=== PATIENT | male | born 1960 | race Caucasian/White ===

== ENCOUNTER 2022-05-15 13:02 | Emergency (ER) | payer BC, SELFPAY ==
[2022-05-15 13:03] VITALS: BP 138/88; PULSE 51; RESP 18; TEMP 36.8; O2SAT 98
--- NOTE | 2022-05-15 13:27 | W.ED.GENAD ---
Discharge Plan Disposition Patient Disposition: Home Condition: Stable Discharge Details Clinical Impression: Closed right ankle fracture Primary Care Provider: Unknown,Unknown ED Provider: Kyle Mcdonald Home Meds and New Rx's Prescriptions: Continued acetaminophen [Acetaminophen Extra Strength] 500 mg Tablet 1,000 mg PO Q6H PRN No Action ibuprofen [Advil] 200 mg tablet 200 mg PO Q6H PRN Discharge Instructions Instructions: Ankle Fracture (ED) Additional Instructions: Please take ibuprofen over the counter. Take 600mg by mouth every 6 hours as needed for pain. Keep splint intact and use crutches. No weightbearing. Please follow-up with orthopedics. Call tomorrow. Please contact your primary care physician to arrange follow-up. Return to the ER immediately for any worsening or new concerning symptoms. Referrals: [facility] [Provider Group] Discharge Data Discharge Date/Time-TO BE ENTERED AT DEPARTURE: 05/15/22 14:30 Medical Decision Making 1333 -- 62-year-old male here with right ankle injury after slip on ice. Patient has significant swelling and crepitus in his ankle and I am concerned about bimalleolar versus trimalleolar fracture. Patient is neurovascular intact. Plan to obtain x-ray. Pain is currently controlled with Tylenol that he took prior to arrival. -- X-ray was interpreted by radiology: The appearance is consistent with trimalleolar fracture of the ankle, a question mild widening of the ankle mortise medially which could indicate a ligamentous injury . Spoke with on-call orthopedics who recommends posterior slab splint and will see patient in follow-up. Splint was applied by me. Patient neurovascular intact post blunt application. Patient provided crutches and advised to maintain nonweightbearing status. Plan to follow-up with orthopedics. Usual customary discharge instructions were reviewed with the patient. Sign Out No HPI General Mode of arrival: ambulatory. Date/Time Provider Initiated Documentation: 05/15/22 13:13. Limitations to Documentation: no limitations. Information obtained by: patient. HPI Narrative: 62-year-old male presents with chief complaint of right ankle injury. Patient notes he twisted his ankle with a fall on the ice just prior to arrival. He has pain in his ankle that is moderate and worse with any attempted movement. He notes ankle feels unstable. He denies associated numbness or tingling. No other injury. Related Data Home Medications Medication Instructions Recorded Confirmed acetaminophen 500 mg tablet 1,000 mg PO Q6H PRN 05/15/22 06/01/22 (Acetaminophen Extra Strength) ibuprofen 200 mg tablet (Advil) 200 mg PO Q6H PRN 06/01/22 06/01/22 Allergies Allergy/AdvReac Type Severity Reaction Status Date / Time No Known Allergies Allergy Verified 06/01/22 09:00 General Stated Complaint: Orthopedic SHARLA: 3 Review of Systems Musculoskeletal Musculoskeletal: Reports as per HPI Neurologic Neurologic: Reports as per HPI PFS All Active Problems (Updated 05/19/22 @ 09:09 by Clement Godfrey MD) Closed right trimalleolar fracture (Acute 05/15/22) Surgical History History of colonoscopy History of hip replacement Social History Smoking/Tobacco Use Status: Never Smoking risk assessment performed?: Yes Alcohol Intake: never Drug use: Occasionally Substance use type: marijuana Current gender identity: male Do you feel safe at home: Yes Do you feel safe in your relationship?: Yes Exam Const General: cooperative and healthy appearing Nutritional Appearance: average body habitus Orientation: alert and awake Cardio Rate: regular rate Rhythm: regular rhythm Skin Trauma: no lacerations Neuro Other: Distal right lower extremity sensation and motor are intact in toes Extrem Right lower extremity: lower leg Details: normal to inspection and ankle Details: tenderness Location: of the medial malleolus, edema, abnormal ROM and crepitus Course Vital Signs Vital signs: Vital Signs Temperature 36.8 C 05/15/22 13:03 Pulse 51 L 05/15/22 13:03 Respiratory Rate 18 05/15/22 13:03 Blood Pressure 138/88 05/15/22 13:03 Pulse Oximetry 98 05/15/22 13:03 Temperature 36.8 C 05/15/22 13:03 Temperature Source Temporal Artery Scan 05/15/22 13:03 Pulse 51 L 05/15/22 13:03 Respiratory Rate 18 05/15/22 13:03 Respiratory Effort Non-Labored 05/15/22 13:05 Blood Pressure 138/88 05/15/22 13:03 Blood Pressure Position Sitting 05/15/22 13:03 Pulse Oximetry 98 05/15/22 13:03 Pain Level 6 05/15/22 13:03
--- NOTE | 2022-05-15 13:41 | DI.RAD_ITS ---
Exam(s) XR ANKLE RT COMPLETE EXAM: XR ANKLE RT COMPLETE CLINICAL HISTORY: ankle injury, pain TECHNIQUE: COMPARISON: No exams were available for comparison FINDINGS: Three views were obtained. There is a question of slight widening of the ankle mortise medially germaine od there are fractures of the medial and lateral malleoli and probably the posterior malleolus as wel l. No talar or calcaneal fracture identified on these films... IMPRESSION: The appearance is consistent with trimalleolar fracture of the ankle, a question mild widening of th e ankle mortise medially which could indicate a ligamentous injury . RADIATION DOSE DELIVERED: Total DLP
== END 2022-05-15 14:30 | disposition home or self-care (01) ==
PROVIDERS: Emergency Provider Student in an Organized Health Care Education/Training Program
DX: S82.891A Other fracture of right lower leg, initial encounter for closed fracture (principal); W00.0XXA Fall on same level due to ice and snow, initial encounter
CPT/HCPCS: 99283; 73610

== ENCOUNTER 2022-05-17 08:25 | Outpatient (CLI) | payer BC, SELFPAY ==
--- NOTE | 2022-05-17 07:45 | DI.RAD_ITS ---
Exam(s) XR ANKLE RT COMPLETE EXAM: XR ANKLE RT COMPLETE CLINICAL HISTORY: right ankle fracture. TECHNIQUE: 2D digital imaging was performed of the right ankle. Three images were obtained. AP, la teral and oblique views were obtained. COMPARISON: CR XR ANKLE RT COMPLETE from 05/15/2022 FINDINGS: BONES: There is again seen a laterally displaced oblique fracture of the distal right fibula. There is also seen a fracture of the medial malleolus. In the interim there does appear to be mild increas e in the lateral displacement of the distal malleolar fracture fragment. The fracture the posterior malleolus is not as well visualized on the current examination. No bony destructive lesion is seen. JOINTS: There does appear to be slight increase in widening of the medial ankle joint compartment com pared to the prior examination. SOFT TISSUE: There is soft tissue swelling of the ankle. The ankle is in a splint. IMPRESSION: Fractures involving the distal tibia and fibula. Mild increase in the displacement of the medial mal leolar fracture and mild increase in the widening of the medial ankle joint space. DATA REPOSITORY: RADIATION DOSE DELIVERED:
== END 2022-05-17 08:26 | disposition home or self-care (01) ==
LOC: DIORS 08:25
PROVIDERS: Visit Provider Physician Assistant
DX: S82.891D Other fracture of right lower leg, subsequent encounter for closed fracture with routine healing (principal); X58.XXXD Exposure to other specified factors, subsequent encounter
CPT/HCPCS: 73610

== ENCOUNTER 2022-05-19 12:00 | Day surgery (SDC) | payer BC, SELFPAY ==
[2022-05-19 12:14] VITALS: BP 129/63; PULSE 62; RESP 16; TEMP 36.6; O2SAT 98
[2022-05-19] MEDS: Lactated Ringers 1,000 ML 30 ML IV (12:46)
--- NOTE | 2022-05-19 14:17 | W.ANESPRE ---
General Info Date of Service Date Performed: 05/19/22 Height: 5 ft 9 in Weight: 72 kg Body Mass Index (BMI): 23.4 Surgical Procedure: Operation Date: 05/19/22 15:10 Proposed Procedure Side Surgeon p Ankle ORIF, Possible Syndemosis Fixation Right Clement Godfrey MD Meds Allergies and Home Medications Allergies Allergy/AdvReac Type Severity Reaction Status Date / Time No Known Allergies Allergy Verified 05/19/22 12:11 Home Medication Medication Instructions Recorded acetaminophen 500 mg tablet 1,000 mg PO Q6H PRN 05/15/22 (Acetaminophen Extra Strength) aspirin 81 mg tablet,delayed 81 mg PO DAILY prevent blood clot 05/19/22 release 7 days #7 tabs naproxen 250 mg tablet 250 - 500 mg PO BID PRN #40 tabs 05/19/22 oxycodone 5 mg tablet 5 - 10 mg PO Q4H PRN moderate to 05/19/22 severe pain #18 tabs Current Visit Medications: Current Medications Generic Name Dose Route Start Last Admin Trade Name Freq PRN Reason Stop Dose Admin Ringer's Solution 1,000 mls @ 30 mls/hr 05/19/22 06:00 05/19/22 12:46 IV 06/17/22 23:59 30 mls/hr INFUSION MARLON Administration Cefazolin Sodium/Dextrose 2 gm in 50 mls @ 100 mls/hr 05/19/22 06:00 Ancef Duplex IVPB 05/19/22 16:00 PREOP MARLON IV Miscellaneous Supplies 1 each 05/19/22 06:00 Iv Access IV 06/17/22 23:59 DIRECTED MARLON Oxycodone HCl 0 mg 05/19/22 09:04 Oxycodone 5 Mg Tab PO Q3H PRN PRN Pain Sodium Chloride 0 ml 05/19/22 06:00 Normal Saline Flush 10 Ml Syr IV 06/17/22 23:59 PRN PRN Sodium Chloride 0 ml 05/19/22 06:00 Normal Saline 10 Ml Vial IJ 06/17/22 23:59 DIRECTED PRN Sterile Water 0 ml 05/19/22 06:00 Water,Injection,Sterile 10 Ml Vial IJ 06/17/22 23:59 DIRECTED PRN PFSH Active Problems Active Problems: Problem Status Onset Code Closed right trimalleolar fracture 05/15/22 [id number] Surgical History Surgical History History of colonoscopy History of hip replacement Tobacco Smoking/Tobacco Use Status: Never Alcohol Alcohol Intake: never Substance Use Substance use: Occasionally Substance use type: marijuana Vital Signs and Lab Results Vital Signs Most Recent Vital Signs in EMR: Most Recent Vital Signs Temp Pulse Resp BP Pulse Ox 36.6 C 62 16 129/63 98 05/19/22 12:14 05/19/22 12:14 05/19/22 12:14 05/19/22 12:14 05/19/22 12:14 Lab Results Blood Type / Crossmatch: No Data to Display Complete Blood Count: No Data to Display Complete Metabolic Panel: No Data to Display Liver Function Panel: No Data to Display Coagulation Panel: No Data to Display Cardiac Panel: No Data to Display Arterial Blood Gas: No Data to Display Venous Blood Gas: No Data to Display Pancreas Panel: No Data to Display Thyroid Panel: No Data to Display Infectious Disease: No Data to Display Blood Cultures: No Data to Display Toxicology Panel: No Data to Display Anesthesia Assessment and Plan Anesthesia History Personal History: No History of Anesthesia Complications Family History: No Family History of Anesthesia Complications Exercise Tolerance Exercise Tolerance: Metabolic Equivalents>4 Cardiac & Pulmonary Exam Cardiac Exam: Normal S1/S2 Heart Sounds Pulmonary Exam: Clear Bilateral Breath Sounds Implantable Cardiac Device Does patient have a Pacemaker or an ICD?: No Airway Exam Known Difficult Airway: No Mallampati Class: 2 Mouth Opening: Normal (> 3cm) Thyromental Distance: Greater than 3 cm Neck Range of Motion: Full ROM Neck Circumference: Normal Teeth Condition: Normal Dentition ASA Classification ASA Score: ASA 2 Emergency Case?: No NPO Status NPO Status: NPO Clears >2 hours, Solids >8 hours Anesthesia Plan Resuscitation Status: Full Code Anesthesia Technique: General Anesthesia Airway Planned: Endotracheal Tube Pain Management: Surgeon and patient request nerve block Monitors Used: Standard Monitors Preoperative Comments:: 62 to male for ankle ORIF. Sig PMHx: never tobacco, occ cannabis, denies any major. Discussed risk, benifits, and alternitives of GA with regional anesthesia (adductor canal, pop/sci). He would like to not do a nerve block right off and would like it as a rescue.
[2022-05-19 14:18] VITALS: BMI 23.4
--- NOTE | 2022-05-19 14:45 | DI.RAD_ITS ---
Exam(s) XR ANKLE RT COMPLETE EXAM: XR ANKLE RT COMPLETE CLINICAL HISTORY: RIGHT ANKLE FRACTURE TECHNIQUE: 2D and realtime digital imaging was performed. CONTRAST MATERIAL: Refer to procedure report. COMPARISON: CR XR ANKLE RT COMPLETE from 05/17/2022 FINDINGS: Fluoroscopy was provided for Dr. Godfrey during the performance of a reduction and internal fixation o f the right ankle fracture. Please refer to the procedure report for complete details. Ka,r=1.23 mGy IMPRESSION: RADIATION DOSE DELIVERED:
[2022-05-19] MEDS: ceFAZolin 2 GM/50 ML BAG IVPB (15:13)
[2022-05-19 16:50] VITALS: BP 111/66; PULSE 62; RESP 17; TEMP 36.5; O2SAT 93
[2022-05-19 16:55] VITALS: BP 109/62; PULSE 59; RESP 12; TEMP 36.5; O2SAT 94
[2022-05-19 17:00] VITALS: BP 112/66; PULSE 58; RESP 18; TEMP 36.5; O2SAT 95
--- NOTE | 2022-05-19 17:02 | W.PM.DSUDISC ---
Date of service: 05/19/22 Time of Service: 17:00 Discharge Plan Disposition Patient Disposition: Home Discharge Details Attending Provider: Clement Godfrey Primary Care Provider: Kaya,Local Home Meds and New Rx's Prescriptions: New naproxen 250 mg tablet 250 - 500 mg PO BID PRNQty: 40 0RF Rx Instructions: take with a meal oxycodone 5 mg tablet 5 - 10 mg PO Q4H MDD 30 mg PRN (Reason: moderate to severe pain) Qty: 18 0RF aspirin 81 mg tablet,delayed release (DR/EC) 81 mg PO DAILY 14 Days Qty: 14 0RF Continued acetaminophen [Acetaminophen Extra Strength] 500 mg Tablet 1,000 mg PO Q6H PRN Discontinued ibuprofen 200 mg tablet 200 mg PO Q6H PRN Discharge Instructions Additional Instructions: Surgery: Right trimalleolar ankle ORIF (medial and lateral malleoli) Activity: Non-weightbearing with crutches. Strict elevation to minimize swelling and discomfort. Wiggle toes to improve circulation and prevent blood clot. A physical therapy prescription will be provided separately in the office at follow-up if needed. Prescriptions: Aspirin 81 mg take 1 daily to prevent a blood clot for 2 weeks Naproxen 250 mg take 1-2 every 12 hours with a meal as needed for moderate pain Oxycodone 5 mg take 1-2 every 4-6 hours as needed for severe pain You may use [id number] Tylenol (acetaminophen) as needed for mild pain. These pain medications may be taken all at once or in different combinations as needed. Also, recommend Colace (docusate) as a stool softener as surgery and pain medicine cause constipation. You may try [id number] diphenhydramine (Benadryl) 25-50 mg nightly as a sleep aid Dressings: Leave splint and dressing in place until follow-up. Keep clean and dry at all times. Follow-up: 10-[address] Godfrey You may take off the leg compression stockings this evening at home. You may also leave them on a few days longer if you have a history of leg swelling or edema. Let us know right away if you develop any redness, drainage, fevers, chest pain, or trouble breathing. Do not drink alcohol or drive for at least 24 hours after anesthesia. Please call the office during business hours with any questions or concerns. Discharge Orders Discharge Orders: Discharge Order (Routine); Ordered 05/19/22 Ordered By: Clement Godfrey DS: Diagnosis Discharge Diagnosis (1) Closed right trimalleolar fracture: Status: Acute
--- NOTE | 2022-05-19 17:11 | ROE_ITS ---
Date of service: 05/19/22 Time of Service: 15:00 Operative Note Operative Note DATE OF PROCEDURE: 05/19/22 PRE-OP DIAGNOSIS: Right displaced trimalleolar ankle fracture POST-OP DIAGNOSIS: same PROCEDURE: Right ankle: 1. Trimalleolar ankle fracture ORIF, medial and lateral malleoli, CPT #85384 SURGEON: Clement Godfrey TIMBER MANAGEMENT SPECIALIST: Swati Brown ANESTHESIA TYPE: Local By Surgeon and General LMA/ETT Refer to Anesthesia Record ESTIMATED BLOOD LOSS: 15 TOURNIQUET TIME: 0 COMPLICATIONS: None Patient was transported to: PACU Patient's condition: stable Implants: Synthes / tublar plate, 7 hole with 3.5 mm cortex screws (low profile) and 4.0 cancellous screws. Partially threaded cancellous screws medially. Indications: Please see complete medical record for details. Procedure Description: In the operating room, general anesthesia was induced. The patient was positioned supine on the operating room table. All bony prominences were well- padded. Preoperative antibiotics were administered. The right ankle was prepped and draped in the usual sterile fashion. The correct patient, procedure, and side of the procedure were all verified prior to incision. The planned medial and lateral surgical sites were pretty injected with 0.25% bupivacaine containing epinephrine. A curvilinear approach to the medial malleolus was used with interposed soft tissue removed and a pointed clamp used to achieve and provisionally hold the reduction. The 2.5 mm drill was then directed fluoroscopically up the medial malleolus into the central distal tibia. A 4.0 mm partially-threaded cancellous screw was inserted with reasonable fixation strength. The clamp was removed. There was minimal motion but slight gapping anteriorly at the shoulder this process was repeated for more anterior colliculi second partially-threaded screw. The screw engaged fairly soft bone and only minimally compressed the fracture site. Both screws were final tightened. Medial malleolus was stable and acceptably reduced. The direct lateral approach was taken to the distal fibula centered about the fracture site. Periosteum was elevated as needed proximally and distally. The fracture ends were exposed, cleaned of fibrinous material, and reduced with a couple bone clamps readily restoring length and rotation with excellent fracture keys. The anterior syndesmosis was visibly intact at the proximal half of it to the proximal aspect of the fracture. The distal portion had moderate injury to the displaced distal portion of the fibula. A 7 hole 1/3 tubular plate was selected to allow 3 holes above and below the fracture site. It was contoured to fit the patient then applied and secured with a 3.5 mm bicortical cortex screw just proximal to the fracture. Length and position were confirmed. An additional proximal bicortical screw was placed proximally followed by an initial 1 just distal to the fracture site, but above the talus taking care not to enter the tib-fib joint. The most distal 2 screw holes where drilled under fluoroscopic guidance and then optimally lengths 4.0 mm cancellous screws placed for best fixation to avoid entering the lateral shoulder lastly the final proximal bicortical screw was drilled and placed. The ankle mortise was inspected fluoroscopically. There was excellent and stable tib-fib overlap and medial clear space on external rotation stress testing. The tiny posterior malleolus fragment was reasonably reduced as well. Decision made to omit any syndesmotic fixation. The wounds were copiously irrigated with normal saline. Subcutaneous tissue was closed in 2-0 Monocryl buried interrupted. The skin was closed with 3-0 nylon horizontal mattress. Xeroform applied over incisions followed by sterile gauze, ABD pads, and sterile soft roll. A well-padded plaster short leg AO splint a pplied. The patient awoke from anesthesia without complication and was transferred to the recovery room in a stable condition.
[2022-05-19 17:12] VITALS: BP 114/68; PULSE 56; RESP 18; TEMP 36.6; O2SAT 96
--- NOTE | 2022-05-19 17:13 | W.ANESPOSTOP ---
Postoperative Evaluation Date, Time and Location Date Performed: 05/19/22 Time Performed: 17:13 Patient Location: PACU Vital Signs Most Recent Imported Vital Signs: Most Recent Vital Signs Temp Pulse Resp BP Pulse Ox 36.5 C 58 L 18 112/66 95 05/19/22 17:00 05/19/22 17:00 05/19/22 17:00 05/19/22 17:00 05/19/22 17:00 Pain Score Most Recent Pain Score: Most Recent Pain Score Pain Level 5 05/19/22 17:00 Assessment Mental Status: Awake (Alert & Oriented to Patient Baseline) Airway and Respiratory Function: Patent airway with normal (patient baseline) respiratory exam Cardiovascular Function: Hemodynamically Stable Hydration Status: Adequately Hydrated Nausea & Vomiting: No Nausea or Vomiting Pain: Pain is tolerable per patient Peripheral Nerve Block: Patient did not receive a nerve block Postoperative Comments:: Pt. awake and doing well. States tolerable discomfort. Declines rescue nerve block.
[2022-05-19] MEDS: oxyCODONE 5 MG TAB PO (17:23)
[2022-05-19 17:44] VITALS: BP 120/72; PULSE 46; RESP 18; TEMP 36.2; O2SAT 99
== END 2022-05-19 18:14 | disposition home or self-care (01) ==
PROVIDERS: Visit Provider Student in an Organized Health Care Education/Training Program
PROC: (CPT 27822; principal; 2022-05-19 15:00)
DX: S82.851A Displaced trimalleolar fracture of right lower leg, initial encounter for closed fracture (principal); W00.0XXA Fall on same level due to ice and snow, initial encounter
CPT/HCPCS: 27822; 73610; J0131; J0690; J1100; J1885; J2405; J2704

== ENCOUNTER 2022-06-01 09:16 | Outpatient (CLI) | payer BC, SELFPAY ==
--- NOTE | 2022-06-01 09:22 | DI.RAD_ITS ---
Exam(s) XR ANKLE RT COMPLETE EXAM: XR ANKLE RT COMPLETE CLINICAL HISTORY: right ankle f/u. TECHNIQUE: 2D digital imaging was performed. COMPARISON: CR XR ANKLE RT COMPLETE from 05/17/2022 XA XR ANKLE RT COMPLETE from 05/19/2022 FINDINGS: 3 views There has been interval ORIF. Again noted is lateral fixation plate in satisfactory position across the fibular fracture site. Fra cture line this level still evident but nondisplaced. There are also 2 parallel screws across the me dial malleolus fracture site noted. Posteriorly there is a small calcific density immediately posterior to the posterior malleolus which is possibly an avulsion injury at this level. Otherwise the talar dome appears unremarkable. Ankle and subtalar joints appear satisfactory-unremar kable. No radiographic evidence of osteomyelitis. No hardware loosening. IMPRESSION: As above. DATA REPOSITORY: RADIATION DOSE DELIVERED:
== END 2022-06-01 09:17 | disposition home or self-care (01) ==
LOC: DIORS 09:17
PROVIDERS: Visit Provider Student in an Organized Health Care Education/Training Program
DX: S82.851D Displaced trimalleolar fracture of right lower leg, subsequent encounter for closed fracture with routine healing (principal); X58.XXXD Exposure to other specified factors, subsequent encounter
CPT/HCPCS: 73610

== ENCOUNTER 2022-06-28 10:18 | Outpatient (CLI) | payer BC, SELFPAY ==
--- NOTE | 2022-06-28 08:15 | DI.RAD_ITS ---
Exam(s) XR ANKLE RT COMPLETE EXAM: XR ANKLE RT COMPLETE CLINICAL HISTORY: right ankle f/u. TECHNIQUE: 2D digital imaging was performed. COMPARISON: Prior x-rays 06/01/2022 FINDINGS: 3 views Hardware including a lateral fixation plate distal fibula and screw across medial malleolus fracture site remains stable with no loosening nor radiographic evidence of osteomyelitis. There is stable al ignment at the fracture sites. Fracture lines are still visible. There is no widening of the ankle mortise and the talar dome appears unremarkable. No incidental osseous tarsal coalition. IMPRESSION: Stable appearance. DATA REPOSITORY: RADIATION DOSE DELIVERED:
== END 2022-06-28 10:19 | disposition home or self-care (01) ==
LOC: DIORS 10:18
PROVIDERS: Visit Provider Student in an Organized Health Care Education/Training Program
DX: S82.851D Displaced trimalleolar fracture of right lower leg, subsequent encounter for closed fracture with routine healing (principal); X50.1XXD Overexertion from prolonged static or awkward postures, subsequent encounter; W00.0XXD Fall on same level due to ice and snow, subsequent encounter
CPT/HCPCS: 73610